=== PATIENT | female | born 1950 | race Asian ===

== ENCOUNTER 2016-12-03 11:32 | Inpatient (IN) | payer MEDICARE ==
[~2016-12-03] VITALS: Ht 165.1 cm; Wt 76.8 kg
[~2016-12-03 11:32] MED LIST: ALPR-475 PO; AMLO10TA2 PO; EZET10TA3 PO; FENO48TA5 PO; LEVO175T5 PO; MELO-184 PO; METO-93 PO; ZOLP10TA5 PO
[2016-12-03] MEDS ORDERED: FAMOTIDINE 20 MG/2 ML IVP ONE (12:00)
[2016-12-03] MEDS ORDERED: SODIUM CHLORIDE FLUSH 10ML SYR IVF ONE (12:00)
[2016-12-03] MEDS ORDERED: SODIUM CHLORIDE 0.9% 1,000ML IVBOLUS ONE (12:00)
[2016-12-03] MEDS ORDERED: ONDANSETRON 2MG/ML, 2ML IVPush ONE (12:00)
[2016-12-03] MEDS ORDERED: FAMOTIDINE 20 MG/2 ML ONE (12:06)
[2016-12-03] MEDS ORDERED: ONDANSETRON 2MG/ML, 2ML ONE ×2 (12:06→17:39)
[2016-12-03 12:21] LABS: HEMOGLOBIN 10.2 g/dL (11.7-16.4)
[2016-12-03 12:33] LABS: ASPARTATE AMINO TRANSFERASE 27 U/L (15-37); BLOOD UREA NITROGEN 13 mg/dL (7-18)
[2016-12-03] MEDS ORDERED: CEFOTETAN PMX 1GM/50ML 50 ML IVPB ONE (15:30)
[2016-12-03] MEDS ORDERED: SODIUM CHLORIDE 0.9% 1,000 ML IV ONE (15:31)
[2016-12-03] MEDS ORDERED: CEFOTETAN PMX 1GM/50ML 50 ML ONE (15:43)
[2016-12-03] MEDS ORDERED: SODIUM CHLORIDE FLUSH 10ML SYR IVF PRN (16:00)
[2016-12-03] MEDS ORDERED: BUPIVACAINE/PF-EPI 0.25% 1:200K ONE (16:02)
[2016-12-03] MEDS: SODIUM CHLORIDE 0.9% 1,000 ML IV SCH (16:18)
[2016-12-03] MEDS ORDERED: ACETAMINOPHEN 325 MG TABLET PO PRN ×2 (16:30→17:00)
[2016-12-03] MEDS ORDERED: ONDANSETRON 2MG/ML, 2ML IVP PRN (16:30)
[2016-12-03] MEDS ORDERED: FENTANYL PF 100 MCG/2ML ONE ×2 (16:40→18:40)
[2016-12-03] MEDS ORDERED: PROMETHAZINE 25 MG/ML, 1ML IV PRN (17:00)
[2016-12-03] MEDS ORDERED: OXYcodone 5 MG/5 ML ORAL.SOL UDC PO PRN (17:00)
[2016-12-03] MEDS ORDERED: ALBUTEROL/IPRATROPIUM 2.5MG/0.5MG, 3 ML NPPB PRN (17:00)
[2016-12-03] MEDS ORDERED: FENTANYL PF 100 MCG/2ML IV PRN (17:00)
[2016-12-03] MEDS ORDERED: hydrALAzine 20 MG/ML, 1ML IV PRN (17:00)
[2016-12-03] MEDS ORDERED: ONDANSETRON 2MG/ML, 2ML IVPush PRN (17:00)
[2016-12-03] MEDS ORDERED: FENTANYL PF 100 MCG/2ML IV ONE (17:00)
[2016-12-03] MEDS ORDERED: MEPERIDINE/PF 25MG/0.5ML IVPush PRN (17:00)
[2016-12-03] MEDS ORDERED: MIDAZOLAM 1 MG/ML, 2ML IV PRN (17:00)
[2016-12-03] MEDS ORDERED: POTASSIUM CHLORIDE 40 MEQ in SODIUM CHLORIDE 0.9% 500 ML IV ONE (17:00)
[2016-12-03] MEDS ORDERED: LABETALOL 5MG/ML, 20ML IV PRN (17:00)
[2016-12-03] MEDS ORDERED: HYDROmorphone 1 MG/ML, 1ML IV PRN (17:00)
[2016-12-03] MEDS ORDERED: FENTANYL PF 250 MCG/5ML ONE (17:28)
[2016-12-03] MEDS ORDERED: MIDAZOLAM 1 MG/ML, 2ML ONE (17:29)
[2016-12-03] MEDS ORDERED: NEOSTIGMINE 1 MG/ML, 10ML ONE (17:39)
[2016-12-03] MEDS ORDERED: SUCCINYLCHOLINE 20 MG/ML, 10ML ONE (17:39)
[2016-12-03] MEDS ORDERED: GLYCOPYRROLATE 0.2MG/1ML ONE (17:39)
[2016-12-03] MEDS ORDERED: ROCURONIUM 10 MG/ML ONE (17:39)
[2016-12-03] MEDS ORDERED: DEXAMETHASONE 4 MG/ML, 5ML ONE (17:39)
[2016-12-03] MEDS ORDERED: PROPOFOL 10 MG/ML, 20ML ONE (17:39)
[2016-12-03] MEDS ORDERED: OXYcodone 5 MG/5 ML ORAL.SOL UDC ONE (18:41)
[2016-12-03 18:45] LABS: DAU SCREEN DISCLAIMER
[2016-12-03] MEDS ORDERED: morphine SULFATE 10 MG/ML, 1ML IV PRN (20:30)
[2016-12-03] MEDS ORDERED: OXYcodone/APAP 5/325MG TABLET PO PRN (20:30)
[2016-12-03] MEDS ORDERED: LORazepam 1MG TABLET PO PRN (20:30)
[2016-12-03] MEDS: SODIUM CHLORIDE FLUSH 10ML SYR IVF SCH (22:03)
[2016-12-03] MEDS: POTASSIUM CHLORIDE 20 MEQ in D5%-0.45% NACL 1,000 ML IV SCH (22:04)
[2016-12-03] MEDS: ONDANSETRON 2MG/ML, 2ML IV PRN (22:06)
[2016-12-03] MEDS: ZOLPIDEM 10MG TABLET PO SCH (22:35)
[2016-12-03] MEDS: ENOXAPARIN 40 MG/0.4 ML SQ SCH (22:38)
[2016-12-04] VITALS: BP 120/80
[2016-12-04] MEDS: SODIUM CHLORIDE 0.9% 1,000 ML IV SCH ×2 (02:13→13:20)
[2016-12-04 02:47] VITALS: BP 114/76
[2016-12-04] MEDS: CEFOTETAN PMX 1GM/50ML 50 ML IVPB SCH ×2 (04:10→16:14)
[2016-12-04 06:00] LABS: HEMOGLOBIN 8.4 g/dL (11.7-16.4)
[2016-12-04 06:22] LABS: BLOOD UREA NITROGEN 12 mg/dL (7-18)
[2016-12-04 06:32] LABS: ASPARTATE AMINO TRANSFERASE 60 U/L (15-37); TOTAL IRON BINDING CAPACITY 301 mcg/dL (250-450)
[2016-12-04] MEDS: POTASSIUM CHLORIDE 20 MEQ in D5%-0.45% NACL 1,000 ML IV SCH ×2 (06:36→11:53)
[2016-12-04 06:52] LABS: DIFF TOTAL CELLS COUNTED 100 CELL DIFF
[2016-12-04 06:55] LABS: VERIFY COUNTS? YES
[2016-12-04 06:56] LABS: ANISOCYTOSIS 1+; POLYCHROMASIA 1+
[2016-12-04 06:57] LABS: MICROCYTOSIS 1+
[2016-12-04 07:10] VITALS: BP 145/81
[2016-12-04] MEDS: ONDANSETRON 2MG/ML, 2ML IV PRN ×2 (08:17→13:18)
[2016-12-04] MEDS: PANTOPRAZOLE 40 MG IV IVP SCH (08:17)
[2016-12-04] MEDS: AMLODIPINE 5 MG TABLET PO SCH (08:51)
[2016-12-04] MEDS: FENOFIBRATE NANOCRYSTALLIZED 48 MG HOMEMEDPO SCH (08:51)
[2016-12-04] MEDS: LEVOTHYROXINE 175 MCG TABLET PO SCH (08:51)
[2016-12-04] MEDS: SODIUM CHLORIDE FLUSH 10ML SYR IVF SCH ×2 (08:51→20:45)
[2016-12-04] MEDS: EZETIMIBE 10 MG TABLET PO SCH (08:51)
[2016-12-04] MEDS: METOPROLOL SUCCINATE 50 MG TAB.ER.24H PO SCH (08:51)
[2016-12-04] MEDS: LORazepam 2 MG/ML, 1ML IV PRN ×2 (09:23→20:52)
[2016-12-04] MEDS: MORPHINE SULFATE 4 MG/ML, 1ML IVPush PRN ×3 (11:57→20:52)
[2016-12-04 13:21] VITALS: BP 131/79
[2016-12-04] MEDS ORDERED: POTASSIUM CHLORIDE 40 MEQ in SODIUM CHLORIDE 0.9% 500 ML IV ONE (15:30)
[2016-12-04 19:04] VITALS: BP 127/73
[2016-12-04] MEDS: ZOLPIDEM 10MG TABLET PO SCH (20:44)
[2016-12-04] MEDS: ENOXAPARIN 40 MG/0.4 ML SQ SCH (20:45)
[2016-12-05] VITALS (10 sets, daily range): BP systolic 120–157; BP diastolic 70–87
[2016-12-05] MEDS: SODIUM CHLORIDE 0.9% 1,000 ML IV SCH ×3 (00:18→20:00)
[2016-12-05] MEDS: HYDROcodone/APAP 5/325 TABLET PO PRN ×6 (00:55→20:38)
[2016-12-05] MEDS: TEMAZEPAM 15 MG CAPSULE PO PRN ×2 (00:59→20:38)
[2016-12-05 06:52] LABS: ASPARTATE AMINO TRANSFERASE 30 U/L (15-37); BLOOD UREA NITROGEN 7 mg/dL (7-18)
[2016-12-05] MEDS: ONDANSETRON 2MG/ML, 2ML IV PRN ×2 (07:28→12:32)
[2016-12-05] MEDS: FENOFIBRATE NANOCRYSTALLIZED 48 MG HOMEMEDPO SCH (09:00)
[2016-12-05] MEDS: SODIUM CHLORIDE FLUSH 10ML SYR IVF SCH ×2 (09:24→21:00)
[2016-12-05] MEDS: AMLODIPINE 5 MG TABLET PO SCH (09:24)
[2016-12-05] MEDS: METOPROLOL SUCCINATE 50 MG TAB.ER.24H PO SCH (09:24)
[2016-12-05] MEDS: PANTOPRAZOLE 40 MG IV IVP SCH (09:24)
[2016-12-05] MEDS: LEVOTHYROXINE 175 MCG TABLET PO SCH (09:24)
[2016-12-05] MEDS: EZETIMIBE 10 MG TABLET PO SCH (09:24)
[2016-12-05] MEDS ORDERED: POTASSIUM CHLORIDE 20 MEQ TAB.ER.PRT PO ONE (10:30)
[2016-12-05] MEDS ORDERED: POTASSIUM PHOSPHATE 44 MEQ in SODIUM CHLORIDE 0.9% 500 ML IV ONE (11:00)
[2016-12-05] MEDS: ENOXAPARIN 40 MG/0.4 ML SQ SCH (20:43)
[2016-12-05] MEDS: ZOLPIDEM 10MG TABLET PO SCH (21:00)
[2016-12-06] MEDS: HYDROcodone/APAP 5/325 TABLET PO PRN ×5 (00:36→19:12)
[2016-12-06 00:41] VITALS: BP 147/83
[2016-12-06] MEDS ORDERED: MAGNESIUM SULFATE PMX 2GM/50ML 50 ML IV ONE (02:30)
[2016-12-06] MEDS: SODIUM CHLORIDE 0.9% 1,000 ML IV SCH ×3 (04:00→20:00)
[2016-12-06 05:42] LABS: BLOOD UREA NITROGEN 5 mg/dL (7-18)
[2016-12-06 07:34] VITALS: BP 116/75
[2016-12-06] MEDS: PANTOPRAZOLE 40 MG IV IVP SCH (08:04)
[2016-12-06] MEDS: SODIUM CHLORIDE FLUSH 10ML SYR IVF SCH ×2 (08:04→20:50)
[2016-12-06] MEDS: METOPROLOL SUCCINATE 50 MG TAB.ER.24H PO SCH (08:07)
[2016-12-06] MEDS: LEVOTHYROXINE 175 MCG TABLET PO SCH (08:08)
[2016-12-06] MEDS: FENOFIBRATE NANOCRYSTALLIZED 48 MG HOMEMEDPO SCH (08:08)
[2016-12-06] MEDS: AMLODIPINE 5 MG TABLET PO SCH (08:08)
[2016-12-06] MEDS: EZETIMIBE 10 MG TABLET PO SCH (08:08)
[2016-12-06 08:10] VITALS: BP 133/73
[2016-12-06] MEDS ORDERED: ONDA4TAB7 PO (10:19)
[2016-12-06] MEDS ORDERED: TRAM50TA2 PO (10:19)
[2016-12-06] MEDS ORDERED: LEVO100T PO (10:20)
[2016-12-06 10:44] LABS: HEMOGLOBIN 9.6 g/dL (11.7-16.4)
[2016-12-06] MEDS: ONDANSETRON 2MG/ML, 2ML IV PRN (12:32)
[2016-12-06 15:19] VITALS: BP 133/82
[2016-12-06 20:13] VITALS: BP 147/77
[2016-12-06] MEDS: ENOXAPARIN 40 MG/0.4 ML SQ SCH (20:49)
[2016-12-06] MEDS: ZOLPIDEM 10MG TABLET PO SCH (23:17)
[2016-12-07 00:34] VITALS: BP 134/72
[2016-12-07] MEDS: SODIUM CHLORIDE 0.9% 1,000 ML IV SCH ×2 (04:00→11:25)
[2016-12-07] MEDS: HYDROcodone/APAP 5/325 TABLET PO PRN ×3 (07:31→15:20)
[2016-12-07 07:56] VITALS: BP 163/82
[2016-12-07] MEDS: PANTOPRAZOLE 40 MG IV IVP SCH (08:43)
[2016-12-07] MEDS: AMLODIPINE 5 MG TABLET PO SCH (08:44)
[2016-12-07] MEDS: EZETIMIBE 10 MG TABLET PO SCH (08:45)
[2016-12-07] MEDS: LEVOTHYROXINE 175 MCG TABLET PO SCH (08:45)
[2016-12-07] MEDS: METOPROLOL SUCCINATE 50 MG TAB.ER.24H PO SCH (08:45)
[2016-12-07] MEDS: SODIUM CHLORIDE FLUSH 10ML SYR IVF SCH (08:47)
[2016-12-07] MEDS: FENOFIBRATE NANOCRYSTALLIZED 48 MG HOMEMEDPO SCH (08:47)
[2016-12-07 13:18] VITALS: BP 134/68
[2016-12-07] MEDS ORDERED: HYDR-3240 PO (14:17)
[2016-12-07] MEDS ORDERED: POLY17PO5 PO (14:17)
[2016-12-07 16:24] VITALS: BP 150/75
== END 2016-12-07 16:39 | DRG 417 ==
LOC: OR 15:41 → EDIP 15:46 → SUATTDRO 15:46 → 4NOR 19:25
PROVIDERS: ADMIT Internal Medicine; ATTEND Internal Medicine
PROC: 0FT44ZZ Resection of Gallbladder, Percutaneous Endoscopic Approach (ICD-10-PCS; principal; 2016-12-03 16:30)
PROC: 30233N1 Transfusion of Nonautologous Red Blood Cells into Peripheral Vein, Percutaneous Approach (ICD-10-PCS; 2016-12-05)
DX: K80.00 Calculus of gallbladder with acute cholecystitis without obstruction (principal); E43 Unspecified severe protein-calorie malnutrition; E87.1 Hypo-osmolality and hyponatremia; D62 Acute posthemorrhagic anemia; E87.6 Hypokalemia; N18.3 Chronic kidney disease, stage 3 (moderate); I12.9 Hypertensive chronic kidney disease with stage 1 through stage 4 chronic kidney disease, or unspecified chronic kidney disease; K44.9 Diaphragmatic hernia without obstruction or gangrene; K76.0 Fatty (change of) liver, not elsewhere classified; M51.36 Other intervertebral disc degeneration, lumbar region; D47.3 Essential (hemorrhagic) thrombocythemia; E03.9 Hypothyroidism, unspecified; E78.5 Hyperlipidemia, unspecified; Z96.651 Presence of right artificial knee joint; E66.9 Obesity, unspecified; F43.10 Post-traumatic stress disorder, unspecified; M54.5 Low back pain; G89.29 Other chronic pain; M19.90 Unspecified osteoarthritis, unspecified site; J44.9 Chronic obstructive pulmonary disease, unspecified; E83.39 Other disorders of phosphorus metabolism; Z87.891 Personal history of nicotine dependence; Z80.1 Family history of malignant neoplasm of trachea, bronchus and lung; Z90.710 Acquired absence of both cervix and uterus; Z68.28 Body mass index [BMI] 28.0-28.9, adult
CPT/HCPCS: 36415; 74020; 74176; 76700; 80048; 80053; 80307; 82962; 83540; 83550; 83690; 83735; 84100; 84443; 85014; 85018; 85025; 86850; 86900; 86923; 87324; 88304; 93005; 96361; 96374; 96375; C1729; J1100; J1650; J2250; J2405; J2704; J2710; J3010; J3480; J3490; C1760; C9113; J0330; J2060; J2270; J3475; J7030; J7040; P9016; S0028; S0074

== ENCOUNTER 2016-12-24 08:10 | Inpatient (IN) | payer MEDICARE ==
[~2016-12-24] VITALS: Ht 165.1 cm; Wt 69.5 kg
[~2016-12-24 08:10] MED LIST changes: +HYDR-3240 PO; +LEVO100T PO; +ONDA4TAB7 PO; +POLY17PO5 PO; +TRAM50TA2 PO
[2016-12-24] MEDS ORDERED: METOCLOPRAMIDE 5 MG/ML, 2ML ONE (08:26)
[2016-12-24] MEDS ORDERED: SODIUM CHLORIDE 0.9% 1,000ML IVBOLUS ONE ×2 (08:30→09:30)
[2016-12-24] MEDS ORDERED: FAMOTIDINE 20 MG/2 ML IVP ONE (08:30)
[2016-12-24] MEDS ORDERED: MORPHINE SULFATE 4 MG/ML, 1ML IVPush PRN (08:30)
[2016-12-24] MEDS ORDERED: SODIUM CHLORIDE FLUSH 10ML SYR IVF ONE (08:30)
[2016-12-24] MEDS ORDERED: METOCLOPRAMIDE 5 MG/ML, 2ML IVPush ONE (08:30)
[2016-12-24] MEDS ORDERED: MORPHINE SULFATE 4 MG/ML, 1ML ONE (08:37)
[2016-12-24] MEDS ORDERED: FAMOTIDINE 20 MG/2 ML ONE (08:38)
[2016-12-24 09:03] LABS: BLOOD UREA NITROGEN 27 mg/dL (7-18)
[2016-12-24 09:09] LABS: ASPARTATE AMINO TRANSFERASE 59 U/L (15-37)
[2016-12-24 09:18] LABS: DIFF TOTAL CELLS COUNTED 100 CELL DIFF
[2016-12-24 09:19] LABS: ANISOCYTOSIS 1+; VERIFY COUNTS? YES
[2016-12-24] MEDS ORDERED: POTASSIUM CHLORIDE 40 MEQ in SODIUM CHLORIDE 0.9% 500 ML IV ONE (09:30)
[2016-12-24] MEDS ORDERED: LORazepam 2 MG/ML, 1ML ONE (10:27)
[2016-12-24] MEDS ORDERED: LORazepam 2 MG/ML, 1ML IVPush ONE (10:30)
[2016-12-24] MEDS ORDERED: NS + 20MEQ KCL 1,000 ML IV SCH (10:32)
[2016-12-24] MEDS ORDERED: SODIUM CHLORIDE 0.9% 1,000 ML IV SCH (11:00)
[2016-12-24] MEDS ORDERED: ENALAPRILAT 1.25 MG/ML, 2ML IVPush PRN (11:30)
[2016-12-24] MEDS ORDERED: FAMOTIDINE 20 MG/2 ML IV SCH (11:30)
[2016-12-24] MEDS ORDERED: TEMAZEPAM 15 MG CAPSULE PO PRN (11:30)
[2016-12-24] MEDS ORDERED: POLYETHYLENE GLYCOL 17 GM PACKET PO PRN (11:30)
[2016-12-24] MEDS ORDERED: BISACODYL 10 MG SUPP PR PRN (11:30)
[2016-12-24 12:00] VITALS: BP 149/71
[2016-12-24] MEDS ORDERED: CEFOTETAN PMX 1GM/50ML 50 ML IV SCH (12:00)
[2016-12-24] MEDS: EZETIMIBE 10 MG TABLET PO SCH (12:30)
[2016-12-24] MEDS: FENOFIBRATE 54 MG TABLET PO SCH (12:30)
[2016-12-24] MEDS: AMLODIPINE 5 MG TABLET PO SCH (12:30)
[2016-12-24 12:41] VITALS: BP 138/76
[2016-12-24] MEDS: MORPHINE SULFATE 4 MG/ML, 1ML IVPush PRN ×4 (13:00→20:46)
[2016-12-24] MEDS: SODIUM CHLORIDE 0.9% 1,000 ML IV SCH ×2 (13:02→20:45)
[2016-12-24] MEDS: HEPARIN 5,000 UNITS/ML, 1ML SQ SCH ×2 (15:42→20:45)
[2016-12-24] MEDS: METOPROLOL SUCCINATE 50 MG TAB.ER.24H PO SCH (16:04)
[2016-12-24] MEDS: METRONIDAZOLE PMX 500MG/100ML 100 ML IV SCH ×2 (16:05→21:49)
[2016-12-24 20:27] VITALS: BP 123/69
[2016-12-24] MEDS: FAMOTIDINE 20 MG/2 ML IV SCH (20:45)
[2016-12-24] MEDS: ZOLPIDEM 10MG TABLET PO SCH (21:49)
[2016-12-25] MEDS: MORPHINE SULFATE 4 MG/ML, 1ML IVPush PRN ×3 (00:42→12:26)
[2016-12-25 01:41] VITALS: BP 119/73
[2016-12-25] MEDS: ONDANSETRON 2MG/ML, 2ML IVP PRN ×3 (01:46→21:04)
[2016-12-25] MEDS: HEPARIN 5,000 UNITS/ML, 1ML SQ SCH ×3 (04:00→21:11)
[2016-12-25] MEDS: SODIUM CHLORIDE 0.9% 1,000 ML IV SCH ×2 (04:00→15:42)
[2016-12-25 04:55] LABS: BLOOD UREA NITROGEN 15 mg/dL (7-18)
[2016-12-25 05:01] LABS: ASPARTATE AMINO TRANSFERASE 42 U/L (15-37)
[2016-12-25] MEDS: METRONIDAZOLE PMX 500MG/100ML 100 ML IV SCH ×3 (05:31→21:07)
[2016-12-25] MEDS: LEVOTHYROXINE 100 MCG TABLET PO SCH (05:31)
[2016-12-25] MEDS: OXYcodone IR 5MG TABLET PO PRN ×2 (05:31→21:08)
[2016-12-25 07:37] VITALS: BP 123/65
[2016-12-25] MEDS: FAMOTIDINE 20 MG/2 ML IV SCH ×2 (07:55→21:05)
[2016-12-25] MEDS: EZETIMIBE 10 MG TABLET PO SCH (09:00)
[2016-12-25] MEDS: SENNA/DOCUSATE TABLET PO SCH (09:00)
[2016-12-25] MEDS: FENOFIBRATE 54 MG TABLET PO SCH (09:00)
[2016-12-25] MEDS: GUAIFENESIN/DM 100-10MG, 5ML UDC PO PRN ×2 (09:53→19:35)
[2016-12-25] MEDS ORDERED: POTASSIUM CHLORIDE 40 MEQ in SODIUM CHLORIDE 0.9% 500 ML IV ONE (10:00)
[2016-12-25] MEDS: AMLODIPINE 5 MG TABLET PO SCH (11:35)
[2016-12-25] MEDS: METOPROLOL SUCCINATE 50 MG TAB.ER.24H PO SCH (11:37)
[2016-12-25] MEDS ORDERED: CEFOTETAN PMX 1GM/50ML 50 ML IV SCH (13:00)
[2016-12-25] MEDS ORDERED: METHOCARBAMOL 500 MG TABLET PO PRN (13:00)
[2016-12-25 13:10] VITALS: BP 114/63
[2016-12-25] MEDS: GABAPENTIN 100 MG CAPSULE PO SCH ×3 (13:33→21:07)
[2016-12-25 18:38] VITALS: BP 133/75
[2016-12-25] MEDS: ZOLPIDEM 10MG TABLET PO SCH (21:07)
[2016-12-26 01:36] VITALS: BP 132/71
[2016-12-26 02:06] LABS: BLOOD UREA NITROGEN 7 mg/dL (7-18)
[2016-12-26] MEDS: OXYcodone IR 5MG TABLET PO PRN ×3 (03:13→13:35)
[2016-12-26] MEDS: GABAPENTIN 100 MG CAPSULE PO SCH ×4 (05:55→21:09)
[2016-12-26] MEDS: LEVOTHYROXINE 100 MCG TABLET PO SCH (05:55)
[2016-12-26] MEDS: HEPARIN 5,000 UNITS/ML, 1ML SQ SCH ×3 (05:56→20:56)
[2016-12-26] MEDS: METRONIDAZOLE PMX 500MG/100ML 100 ML IV SCH ×3 (05:56→20:56)
[2016-12-26 07:34] VITALS: BP 113/63
[2016-12-26] MEDS: SENNA/DOCUSATE TABLET PO SCH (08:40)
[2016-12-26] MEDS: FENOFIBRATE 54 MG TABLET PO SCH (09:22)
[2016-12-26] MEDS: METOPROLOL SUCCINATE 50 MG TAB.ER.24H PO SCH (09:22)
[2016-12-26] MEDS: EZETIMIBE 10 MG TABLET PO SCH (09:22)
[2016-12-26] MEDS: AMLODIPINE 5 MG TABLET PO SCH (09:22)
[2016-12-26] MEDS: FAMOTIDINE 20 MG/2 ML IV SCH (09:23)
[2016-12-26] MEDS ORDERED: CALCIUM GLUCONATE 9.2 MEQ in SODIUM CHLORIDE 0.9% 100 ML IV ONE (12:00)
[2016-12-26] MEDS ORDERED: POTASSIUM CHLORIDE 40 MEQ in SODIUM CHLORIDE 0.9% 500 ML IV ONE (12:00)
[2016-12-26] MEDS ORDERED: ERGOCALCIFEROL 50,000 UNIT CAPSULE PO SCH (12:00)
[2016-12-26] MEDS: CEFOTETAN PMX 1GM/50ML 50 ML IV SCH (13:21)
[2016-12-26 14:10] VITALS: BP 118/66
[2016-12-26] MEDS ORDERED: GADOBUTROL 7.5 MMOL/7.5 ML PFS ONE (14:54)
[2016-12-26 20:13] VITALS: BP 115/65
[2016-12-26] MEDS: FAMOTIDINE 20 MG TABLET PO SCH (20:54)
[2016-12-26] MEDS: ZOLPIDEM 10MG TABLET PO SCH (20:54)
[2016-12-27] MEDS: CEFOTETAN PMX 1GM/50ML 50 ML IV SCH ×2 (01:04→12:50)
[2016-12-27 02:24] VITALS: BP 134/78
[2016-12-27] MEDS: OXYcodone IR 5MG TABLET PO PRN ×4 (02:50→20:01)
[2016-12-27] MEDS: GUAIFENESIN/DM 100-10MG, 5ML UDC PO PRN ×2 (04:49→22:20)
[2016-12-27] MEDS: METRONIDAZOLE PMX 500MG/100ML 100 ML IV SCH ×3 (04:50→21:39)
[2016-12-27] MEDS: GABAPENTIN 100 MG CAPSULE PO SCH ×4 (04:50→21:42)
[2016-12-27] MEDS: HEPARIN 5,000 UNITS/ML, 1ML SQ SCH ×3 (04:51→21:37)
[2016-12-27] MEDS: LEVOTHYROXINE 100 MCG TABLET PO SCH (04:51)
[2016-12-27] MEDS: ONDANSETRON 2MG/ML, 2ML IVP PRN (05:05)
[2016-12-27 07:16] VITALS: BP 127/74
[2016-12-27] MEDS: SENNA/DOCUSATE TABLET PO SCH (09:00)
[2016-12-27] MEDS: FENOFIBRATE 54 MG TABLET PO SCH (09:02)
[2016-12-27] MEDS: FAMOTIDINE 20 MG TABLET PO SCH ×2 (09:02→21:41)
[2016-12-27] MEDS: EZETIMIBE 10 MG TABLET PO SCH (09:02)
[2016-12-27] MEDS: METOPROLOL SUCCINATE 50 MG TAB.ER.24H PO SCH (09:02)
[2016-12-27] MEDS: AMLODIPINE 5 MG TABLET PO SCH (09:02)
[2016-12-27 13:27] VITALS: BP 147/75
[2016-12-27] MEDS: METHOCARBAMOL 500 MG TABLET PO SCH ×2 (16:55→21:41)
[2016-12-27] MEDS: LACTOBACILLUS CHEW TABLET PO SCH ×2 (16:56→21:36)
[2016-12-27 19:24] VITALS: BP 119/69
[2016-12-27] MEDS: ZOLPIDEM 10MG TABLET PO SCH (21:41)
[2016-12-28] MEDS: CEFOTETAN PMX 1GM/50ML 50 ML IV SCH ×2 (00:39→12:38)
[2016-12-28 01:13] VITALS: BP 135/79
[2016-12-28] MEDS: OXYcodone IR 5MG TABLET PO PRN ×5 (01:49→21:47)
[2016-12-28] MEDS: HEPARIN 5,000 UNITS/ML, 1ML SQ SCH ×3 (05:53→21:18)
[2016-12-28] MEDS: LEVOTHYROXINE 100 MCG TABLET PO SCH (05:53)
[2016-12-28] MEDS: METRONIDAZOLE PMX 500MG/100ML 100 ML IV SCH ×3 (05:53→21:18)
[2016-12-28] MEDS: GABAPENTIN 100 MG CAPSULE PO SCH ×4 (06:03→21:05)
[2016-12-28 07:53] VITALS: BP 122/70
[2016-12-28] MEDS: LACTOBACILLUS CHEW TABLET PO SCH ×3 (08:18→21:05)
[2016-12-28] MEDS: SENNA/DOCUSATE TABLET PO SCH (08:19)
[2016-12-28] MEDS: AMLODIPINE 5 MG TABLET PO SCH (08:19)
[2016-12-28] MEDS: METHOCARBAMOL 500 MG TABLET PO SCH ×3 (08:19→21:05)
[2016-12-28] MEDS: FENOFIBRATE 54 MG TABLET PO SCH (08:19)
[2016-12-28] MEDS: EZETIMIBE 10 MG TABLET PO SCH (08:19)
[2016-12-28] MEDS: FAMOTIDINE 20 MG TABLET PO SCH ×2 (08:19→21:05)
[2016-12-28] MEDS: METOPROLOL SUCCINATE 50 MG TAB.ER.24H PO SCH (08:20)
[2016-12-28] MEDS: GUAIFENESIN/DM 100-10MG, 5ML UDC PO PRN (09:38)
[2016-12-28 12:22] LABS: ABG COLLECTION SITE RIGHT RADIAL; COLLATERAL CIRCULATION TESTING NORMAL
[2016-12-28 13:03] VITALS: BP 118/73
[2016-12-28] MEDS ORDERED: OMNIPAQUE 350 MG/ML, 100ML BOTTLE ONE (14:24)
[2016-12-28] MEDS ORDERED: LIDOCAINE 2% VISCOUS, 100ML MM PRN (15:30)
[2016-12-28] MEDS ORDERED: CALCIUM CARBONATE 500 MG TAB.CHEW PO PRN (15:30)
[2016-12-28] MEDS: PIPERACILLIN/TAZO/PMX 3.375GM 50 ML IV SCH ×2 (15:46→19:45)
[2016-12-28 19:41] VITALS: BP 104/66
[2016-12-28] MEDS: MORPHINE SULFATE 4 MG/ML, 1ML IVPush PRN (19:45)
[2016-12-28] MEDS: ZOLPIDEM 10MG TABLET PO SCH (21:47)
[2016-12-29 01:29] VITALS: BP 104/66
[2016-12-29] MEDS: PIPERACILLIN/TAZO/PMX 3.375GM 50 ML IV SCH ×4 (02:43→20:35)
[2016-12-29] MEDS: OXYcodone IR 5MG TABLET PO PRN ×4 (02:44→21:23)
[2016-12-29 05:58] LABS: BLOOD UREA NITROGEN < 1 mg/dL (7-18)
[2016-12-29] MEDS: LEVOTHYROXINE 100 MCG TABLET PO SCH (05:58)
[2016-12-29] MEDS: HEPARIN 5,000 UNITS/ML, 1ML SQ SCH ×3 (05:58→20:36)
[2016-12-29] MEDS: METRONIDAZOLE PMX 500MG/100ML 100 ML IV SCH ×3 (05:58→21:23)
[2016-12-29] MEDS: GABAPENTIN 100 MG CAPSULE PO SCH ×4 (06:13→20:34)
[2016-12-29 06:54] VITALS: BP 110/66
[2016-12-29] MEDS: AMLODIPINE 5 MG TABLET PO SCH (08:08)
[2016-12-29] MEDS: FAMOTIDINE 20 MG TABLET PO SCH ×2 (08:08→20:34)
[2016-12-29] MEDS: EZETIMIBE 10 MG TABLET PO SCH (08:08)
[2016-12-29] MEDS: METHOCARBAMOL 500 MG TABLET PO SCH ×3 (08:08→20:34)
[2016-12-29] MEDS: FENOFIBRATE 54 MG TABLET PO SCH (08:08)
[2016-12-29] MEDS: SENNA/DOCUSATE TABLET PO SCH (08:08)
[2016-12-29] MEDS: METOPROLOL SUCCINATE 50 MG TAB.ER.24H PO SCH (08:08)
[2016-12-29] MEDS: LACTOBACILLUS CHEW TABLET PO SCH ×3 (08:08→20:34)
[2016-12-29] MEDS ORDERED: MAGNESIUM SULFATE 4 GM in SODIUM CHLORIDE 0.9% 100 ML IV ONE (11:30)
[2016-12-29] MEDS ORDERED: MAGNESIUM SULFATE PMX 4GM/100M 100 ML IVPB ONE (11:30)
[2016-12-29 12:44] VITALS: BP 118/70
[2016-12-29 19:11] VITALS: BP 115/65
[2016-12-29] MEDS: ZOLPIDEM 10MG TABLET PO SCH (20:35)
[2016-12-30 00:34] VITALS: BP 113/70
[2016-12-30] MEDS: PIPERACILLIN/TAZO/PMX 3.375GM 50 ML IV SCH ×4 (01:39→20:31)
[2016-12-30] MEDS: OXYcodone IR 5MG TABLET PO PRN ×5 (01:48→20:31)
[2016-12-30] MEDS: HEPARIN 5,000 UNITS/ML, 1ML SQ SCH ×3 (05:03→21:54)
[2016-12-30] MEDS: LEVOTHYROXINE 100 MCG TABLET PO SCH (05:03)
[2016-12-30] MEDS: METRONIDAZOLE PMX 500MG/100ML 100 ML IV SCH ×3 (05:04→21:54)
[2016-12-30] MEDS: GABAPENTIN 100 MG CAPSULE PO SCH ×4 (05:04→20:31)
[2016-12-30 05:11] LABS: BLOOD UREA NITROGEN < 1 mg/dL (7-18)
[2016-12-30 06:52] VITALS: BP 115/93
[2016-12-30] MEDS: SENNA/DOCUSATE TABLET PO SCH (08:30)
[2016-12-30] MEDS: METHOCARBAMOL 500 MG TABLET PO SCH ×3 (08:36→20:31)
[2016-12-30] MEDS: LACTOBACILLUS CHEW TABLET PO SCH ×3 (08:36→20:31)
[2016-12-30] MEDS: FAMOTIDINE 20 MG TABLET PO SCH ×2 (08:37→20:31)
[2016-12-30] MEDS: FENOFIBRATE 54 MG TABLET PO SCH (08:38)
[2016-12-30] MEDS: AMLODIPINE 5 MG TABLET PO SCH (08:38)
[2016-12-30] MEDS: METOPROLOL SUCCINATE 50 MG TAB.ER.24H PO SCH (08:41)
[2016-12-30] MEDS: EZETIMIBE 10 MG TABLET PO SCH (10:00)
[2016-12-30 12:35] VITALS: BP 128/71
[2016-12-30] MEDS: POTASSIUM CHLORIDE 20 MEQ TAB.ER.PRT PO SCH (17:00)
[2016-12-30 19:46] VITALS: BP 121/69
[2016-12-30] MEDS: ZOLPIDEM 10MG TABLET PO SCH (20:31)
[2016-12-31] MEDS: OXYcodone IR 5MG TABLET PO PRN ×6 (00:47→21:20)
[2016-12-31] MEDS: PIPERACILLIN/TAZO/PMX 3.375GM 50 ML IV SCH ×4 (02:10→20:30)
[2016-12-31 02:20] VITALS: BP 129/68
[2016-12-31 04:55] LABS: BLOOD UREA NITROGEN < 1 mg/dL (7-18)
[2016-12-31] MEDS ORDERED: POTASSIUM CHLORIDE 20 MEQ TAB.ER.PRT PO ONE (05:30)
[2016-12-31] MEDS: GABAPENTIN 100 MG CAPSULE PO SCH ×4 (05:56→20:30)
[2016-12-31] MEDS: LEVOTHYROXINE 100 MCG TABLET PO SCH (05:56)
[2016-12-31] MEDS: HEPARIN 5,000 UNITS/ML, 1ML SQ SCH ×3 (05:57→20:31)
[2016-12-31] MEDS: METRONIDAZOLE PMX 500MG/100ML 100 ML IV SCH ×3 (05:58→21:40)
[2016-12-31 07:00] VITALS: BP 123/66
[2016-12-31] MEDS: POTASSIUM CHLORIDE 20 MEQ TAB.ER.PRT PO SCH ×2 (08:00→08:23)
[2016-12-31] MEDS: AMLODIPINE 5 MG TABLET PO SCH (08:22)
[2016-12-31] MEDS: FENOFIBRATE 54 MG TABLET PO SCH (08:22)
[2016-12-31] MEDS: LACTOBACILLUS CHEW TABLET PO SCH ×3 (08:22→20:30)
[2016-12-31] MEDS: FAMOTIDINE 20 MG TABLET PO SCH ×2 (08:23→20:30)
[2016-12-31] MEDS: METHOCARBAMOL 500 MG TABLET PO SCH ×3 (08:23→20:30)
[2016-12-31] MEDS: METOPROLOL SUCCINATE 50 MG TAB.ER.24H PO SCH (08:23)
[2016-12-31] MEDS: EZETIMIBE 10 MG TABLET PO SCH (08:23)
[2016-12-31] MEDS: SENNA/DOCUSATE TABLET PO SCH (08:31)
[2016-12-31] MEDS ORDERED: POTASSIUM CHLORIDE 20 MEQ PACKET PO ONE (09:00)
[2016-12-31] MEDS: POTASSIUM CHLORIDE 20 MEQ PACKET PO SCH ×2 (09:00→17:02)
[2016-12-31 12:30] VITALS: BP 126/73
[2016-12-31] MEDS ORDERED: ALPRazolam 1MG TABLET ONE (14:02)
[2016-12-31] MEDS ORDERED: POTASSIUM CHLORIDE 40 MEQ in SODIUM CHLORIDE 0.9% 500 ML IV ONE (17:00)
[2016-12-31 20:04] VITALS: BP 149/89
[2016-12-31] MEDS: ZOLPIDEM 10MG TABLET PO SCH (21:20)
[2017-01-01 01:00] VITALS: BP 115/71
[2017-01-01] MEDS: PIPERACILLIN/TAZO/PMX 3.375GM 50 ML IV SCH ×3 (01:42→14:19)
[2017-01-01] MEDS: OXYcodone IR 5MG TABLET PO PRN ×3 (03:46→14:19)
[2017-01-01] MEDS: METRONIDAZOLE PMX 500MG/100ML 100 ML IV SCH ×2 (05:10→12:39)
[2017-01-01] MEDS: HEPARIN 5,000 UNITS/ML, 1ML SQ SCH ×2 (05:10→13:12)
[2017-01-01] MEDS: LEVOTHYROXINE 100 MCG TABLET PO SCH (05:10)
[2017-01-01] MEDS: GABAPENTIN 100 MG CAPSULE PO SCH ×2 (05:10→10:37)
[2017-01-01 06:14] LABS: BLOOD UREA NITROGEN 1 mg/dL (7-18)
[2017-01-01 07:00] VITALS: BP 130/69
[2017-01-01] MEDS: FENOFIBRATE 54 MG TABLET PO SCH (08:38)
[2017-01-01] MEDS: FAMOTIDINE 20 MG TABLET PO SCH (08:38)
[2017-01-01] MEDS: POTASSIUM CHLORIDE 20 MEQ PACKET PO SCH (08:38)
[2017-01-01] MEDS: AMLODIPINE 5 MG TABLET PO SCH (08:38)
[2017-01-01] MEDS: METHOCARBAMOL 500 MG TABLET PO SCH (08:38)
[2017-01-01] MEDS: EZETIMIBE 10 MG TABLET PO SCH (08:39)
[2017-01-01] MEDS: SENNA/DOCUSATE TABLET PO SCH (08:39)
[2017-01-01] MEDS: METOPROLOL SUCCINATE 50 MG TAB.ER.24H PO SCH (08:39)
[2017-01-01] MEDS: LACTOBACILLUS CHEW TABLET PO SCH (08:39)
[2017-01-01] MEDS ORDERED: GABA100C8 PO (11:53)
[2017-01-01] MEDS ORDERED: METR500P29 IV (11:53)
[2017-01-01] MEDS ORDERED: FAMO20TA7 PO (11:53)
[2017-01-01] MEDS ORDERED: ALPR-475 PO (11:53)
[2017-01-01] MEDS ORDERED: METH500T7 PO (11:53)
[2017-01-01] MEDS ORDERED: PIPE3.373 IV (11:53)
[2017-01-01] MEDS ORDERED: ACID1TAB7 PO (11:53)
[2017-01-01] MEDS ORDERED: POTA20PA8 PO (11:53)
[2017-01-01 13:00] VITALS: BP 126/77
== END 2017-01-01 15:20 | DRG 871 ==
LOC: ED 10:28 → EDIP 10:29 → ED 11:04 → 4EST 11:49
PROVIDERS: ADMIT Family Medicine; ATTEND Internal Medicine
PROC: 02HV33Z Insertion of Infusion Device into Superior Vena Cava, Percutaneous Approach (ICD-10-PCS; principal; 2016-12-24)
PROC: B548ZZA Ultrasonography of Superior Vena Cava, Guidance (ICD-10-PCS; 2016-12-24)
DX: A41.9 Sepsis, unspecified organism (principal); J69.0 Pneumonitis due to inhalation of food and vomit; J96.01 Acute respiratory failure with hypoxia; N17.0 Acute kidney failure with tubular necrosis; L02.211 Cutaneous abscess of abdominal wall; J98.11 Atelectasis; D47.3 Essential (hemorrhagic) thrombocythemia; D63.8 Anemia in other chronic diseases classified elsewhere; E03.9 Hypothyroidism, unspecified; E78.5 Hyperlipidemia, unspecified; E87.6 Hypokalemia; K21.9 Gastro-esophageal reflux disease without esophagitis; F17.210 Nicotine dependence, cigarettes, uncomplicated; F43.10 Post-traumatic stress disorder, unspecified; G89.29 Other chronic pain; Z96.653 Presence of artificial knee joint, bilateral; M54.9 Dorsalgia, unspecified; K76.0 Fatty (change of) liver, not elsewhere classified; M47.816 Spondylosis without myelopathy or radiculopathy, lumbar region; M50.30 Other cervical disc degeneration, unspecified cervical region; M51.36 Other intervertebral disc degeneration, lumbar region; N18.3 Chronic kidney disease, stage 3 (moderate); R13.10 Dysphagia, unspecified; Z80.1 Family history of malignant neoplasm of trachea, bronchus and lung; Z90.49 Acquired absence of other specified parts of digestive tract
CPT/HCPCS: 36415; 36569; 36600; 71010; 71275; 72156; 72157; 72158; 74176; 76700; 76937; 77001; 80048; 80053; 80061; 80307; 81001; 82010; 82040; 82306; 82607; 82800; 82803; 83036; 83605; 83690; 83735; 84145; 84439; 84443; 85025; 85730; 87040; 87086; 87324; 96361; 96365; 96366; 96375; A9585; J0610; J1644; J2405; J2543; J3480; Q9967; C1751; J2060; J2765; J3475; J7030; J7040; S0028; S0074

== ENCOUNTER 2017-01-21 14:59 | Inpatient (IN) | payer MEDICARE ==
[~2017-01-21] VITALS: Ht 165.1 cm; Wt 72.0 kg
[~2017-01-21 14:59] MED LIST changes: +ACID1TAB7 PO; +FAMO20TA7 PO; +GABA100C8 PO; +METH500T7 PO; +METR500P29 IV; +PIPE3.373 IV; +POTA20PA8 PO
[2017-01-21] MEDS ORDERED: SODIUM CHLORIDE 0.9% 1,000 ML IV ONE (15:26)
[2017-01-21] MEDS ORDERED: SODIUM CHLORIDE 0.9% 1,000ML IVBOLUS ONE ×2 (15:30→17:00)
[2017-01-21] MEDS ORDERED: SODIUM CHLORIDE FLUSH 10ML SYR IVF ONE (15:30)
[2017-01-21 16:08] LABS: ASPARTATE AMINO TRANSFERASE 104 U/L (15-37); BLOOD UREA NITROGEN 16 mg/dL (7-18)
[2017-01-21 16:32] LABS: IS PT STATUS REG ER OR PRE ER? YES
[2017-01-21] MEDS ORDERED: OMEP-110 PO (18:09)
[2017-01-21] MEDS ORDERED: FENO145T32 PO (18:09)
[2017-01-21] MEDS ORDERED: SODIUM CHLORIDE 0.9% 1,000 ML IV SCH (18:22)
[2017-01-21] MEDS ORDERED: POLYETHYLENE GLYCOL 17 GM PACKET PO PRN (18:30)
[2017-01-21] MEDS ORDERED: BISACODYL 10 MG SUPP PR PRN (18:30)
[2017-01-21] MEDS ORDERED: ACETAMINOPHEN 325 MG TABLET PO PRN (18:30)
[2017-01-21 18:50] VITALS: BP 118/60
[2017-01-21] MEDS ORDERED: ONDANSETRON 2MG/ML, 2ML ONE (18:55)
[2017-01-21] MEDS: ONDANSETRON 2MG/ML, 2ML IVPush PRN (18:58)
[2017-01-21] MEDS: GABAPENTIN 100 MG CAPSULE PO SCH (21:00)
[2017-01-21] MEDS: ZOLPIDEM 10MG TABLET PO SCH (22:18)
[2017-01-21] MEDS: HEPARIN 5,000 UNITS/ML, 1ML SQ SCH (22:18)
[2017-01-21] MEDS: FAMOTIDINE 20 MG TABLET PO SCH (22:18)
[2017-01-22 00:49] LABS: ABG COLLECTION SITE LEFT BRACHIAL
[2017-01-22 01:07] LABS: IS PT STATUS REG ER OR PRE ER? NO
[2017-01-22] MEDS: SODIUM BICARB 8.4% IV SCH ×2 (01:31→12:08)
[2017-01-22] MEDS: POTASSIUM CHLORIDE IV SCH ×2 (01:31→12:08)
[2017-01-22] MEDS: DEXTROSE 5% IV SCH ×2 (01:31→12:08)
[2017-01-22] MEDS ORDERED: OMNIPAQUE 350 MG/ML, 100ML BOTTLE ONE (01:59)
[2017-01-22 02:07] VITALS: BP 148/75
[2017-01-22 05:10] LABS: BLOOD UREA NITROGEN 21 mg/dL (7-18)
[2017-01-22] MEDS: LEVOTHYROXINE 100 MCG TABLET PO SCH ×2 (05:10→05:21)
[2017-01-22] MEDS: HEPARIN 5,000 UNITS/ML, 1ML SQ SCH ×3 (05:11→23:04)
[2017-01-22 05:14] LABS: ASPARTATE AMINO TRANSFERASE 127 U/L (15-37)
[2017-01-22] MEDS: GABAPENTIN 100 MG CAPSULE PO SCH ×4 (05:15→21:00)
[2017-01-22] MEDS: ONDANSETRON 2MG/ML, 2ML IVPush PRN ×2 (05:18→20:22)
[2017-01-22 06:43] VITALS: BP 156/81
[2017-01-22] MEDS: METOPROLOL SUCCINATE 50 MG TAB.ER.24H PO SCH (09:00)
[2017-01-22] MEDS: FOLIC ACID 1 MG TABLET PO SCH (09:00)
[2017-01-22] MEDS: FENOFIBRATE 145 MG TABLET PO SCH (09:00)
[2017-01-22] MEDS: AMLODIPINE 5 MG TABLET PO SCH (09:00)
[2017-01-22] MEDS: EZETIMIBE 10 MG TABLET PO SCH (09:00)
[2017-01-22] MEDS: SENNA/DOCUSATE TABLET PO SCH (09:00)
[2017-01-22] MEDS: THIAMINE 100MG TABLET PO SCH (09:00)
[2017-01-22] MEDS: FAMOTIDINE 20 MG TABLET PO SCH ×2 (09:00→21:00)
[2017-01-22] MEDS: MULTIVITAMIN 1 TABLET PO SCH (09:00)
[2017-01-22] MEDS ORDERED: ONDANSETRON 2MG/ML, 2ML IVPush ONE (09:30)
[2017-01-22] MEDS: OMEPRAZOLE 20 MG CAPSULE.DR PO SCH ×2 (11:00→17:00)
[2017-01-22] MEDS: MORPHINE SULFATE 4 MG/ML, 1ML IVPush PRN ×3 (12:07→20:22)
[2017-01-22 12:45] VITALS: BP 177/90
[2017-01-22 14:25] LABS: DAU SCREEN DISCLAIMER
[2017-01-22] MEDS: LORazepam 2 MG/ML, 1ML IVPush PRN (19:14)
[2017-01-22 19:25] VITALS: BP 160/84
[2017-01-22] MEDS ORDERED: PROMETHAZINE 25 MG/ML, 1ML IM PRN (22:30)
[2017-01-22] MEDS: ZOLPIDEM 10MG TABLET PO SCH (23:04)
[2017-01-23] MEDS: MORPHINE SULFATE 4 MG/ML, 1ML IVPush PRN ×7 (00:28→22:32)
[2017-01-23 01:15] VITALS: BP 169/93
[2017-01-23] MEDS: LORazepam 2 MG/ML, 1ML IVPush PRN ×3 (03:44→20:49)
[2017-01-23] MEDS: GABAPENTIN 100 MG CAPSULE PO SCH ×4 (05:07→20:46)
[2017-01-23] MEDS: LEVOTHYROXINE 100 MCG TABLET PO SCH (05:07)
[2017-01-23] MEDS: HEPARIN 5,000 UNITS/ML, 1ML SQ SCH ×2 (05:07→15:41)
[2017-01-23 07:32] LABS: ASPARTATE AMINO TRANSFERASE 42 U/L (15-37); BLOOD UREA NITROGEN 8 mg/dL (7-18)
[2017-01-23] MEDS: OMEPRAZOLE 20 MG CAPSULE.DR PO SCH (08:00)
[2017-01-23 08:01] VITALS: BP 159/79
[2017-01-23] MEDS ORDERED: POTASSIUM CHLORIDE 40 MEQ in SODIUM CHLORIDE 0.9% 500 ML IV ONE (08:30)
[2017-01-23] MEDS: SODIUM CHLORIDE 0.9% 1,000 ML IV SCH (08:30)
[2017-01-23] MEDS: AMLODIPINE 5 MG TABLET PO SCH (09:00)
[2017-01-23] MEDS: MULTIVITAMIN 1 TABLET PO SCH (09:00)
[2017-01-23] MEDS: FENOFIBRATE 145 MG TABLET PO SCH (09:00)
[2017-01-23] MEDS: FOLIC ACID 1 MG TABLET PO SCH (09:00)
[2017-01-23] MEDS: SENNA/DOCUSATE TABLET PO SCH (09:00)
[2017-01-23] MEDS: FAMOTIDINE 20 MG TABLET PO SCH ×2 (09:00→20:47)
[2017-01-23] MEDS: THIAMINE 100MG TABLET PO SCH (09:00)
[2017-01-23] MEDS: METOPROLOL SUCCINATE 50 MG TAB.ER.24H PO SCH (09:00)
[2017-01-23] MEDS: EZETIMIBE 10 MG TABLET PO SCH (09:00)
[2017-01-23] MEDS: ONDANSETRON 2MG/ML, 2ML IVPush PRN (09:24)
[2017-01-23] MEDS ORDERED: POTASSIUM PHOSPHATE 44 MEQ in SODIUM CHLORIDE 0.9% 500 ML IV ONE (12:00)
[2017-01-23] MEDS: PANTOPRAZOLE 40 MG IV IVPush SCH (12:54)
[2017-01-23 14:30] VITALS: BP 132/83
[2017-01-23] MEDS ORDERED: LEVO112T4 PO (17:51)
[2017-01-23] MEDS ORDERED: METO25TA35 PO (17:51)
[2017-01-23 20:21] VITALS: BP 149/98
[2017-01-23] MEDS: ZOLPIDEM 10MG TABLET PO SCH (20:46)
[2017-01-24] MEDS: PANTOPRAZOLE 40 MG IV IVPush SCH ×2 (00:13→11:55)
[2017-01-24] MEDS: HEPARIN 5,000 UNITS/ML, 1ML SQ SCH ×3 (00:13→17:27)
[2017-01-24 02:00] VITALS: BP 136/74
[2017-01-24] MEDS: MORPHINE SULFATE 4 MG/ML, 1ML IVPush PRN ×3 (02:28→17:27)
[2017-01-24] MEDS: LORazepam 2 MG/ML, 1ML IVPush PRN ×3 (05:00→21:51)
[2017-01-24] MEDS: LEVOTHYROXINE 100 MCG TABLET PO SCH (05:01)
[2017-01-24] MEDS: GABAPENTIN 100 MG CAPSULE PO SCH ×4 (05:01→21:00)
[2017-01-24 05:09] LABS: BLOOD UREA NITROGEN 5 mg/dL (7-18)
[2017-01-24 08:04] VITALS: BP 146/92
[2017-01-24] MEDS: METOPROLOL SUCCINATE 50 MG TAB.ER.24H PO SCH (09:00)
[2017-01-24] MEDS: FOLIC ACID 1 MG TABLET PO SCH (09:00)
[2017-01-24] MEDS: FENOFIBRATE 145 MG TABLET PO SCH (09:00)
[2017-01-24] MEDS: AMLODIPINE 5 MG TABLET PO SCH (09:00)
[2017-01-24] MEDS: MULTIVITAMIN 1 TABLET PO SCH (09:00)
[2017-01-24] MEDS: FAMOTIDINE 20 MG TABLET PO SCH (09:00)
[2017-01-24] MEDS: SENNA/DOCUSATE TABLET PO SCH (09:00)
[2017-01-24] MEDS: EZETIMIBE 10 MG TABLET PO SCH (09:00)
[2017-01-24] MEDS: THIAMINE 100MG TABLET PO SCH (09:00)
[2017-01-24] MEDS: SODIUM CHLORIDE 0.9% 1,000 ML IV SCH ×2 (09:46→17:28)
[2017-01-24 14:35] VITALS: BP 154/83
[2017-01-24 19:44] VITALS: BP 165/88
[2017-01-24] MEDS: ZOLPIDEM 10MG TABLET PO SCH (21:00)
[2017-01-25] VITALS (15 sets, daily range): BP systolic 147–179; BP diastolic 77–99
[2017-01-25] MEDS: PANTOPRAZOLE 40 MG IV IVPush SCH (00:51)
[2017-01-25] MEDS: SODIUM CHLORIDE 0.9% 1,000 ML IV SCH ×3 (00:51→22:30)
[2017-01-25] MEDS: MORPHINE SULFATE 4 MG/ML, 1ML IVPush PRN ×4 (00:52→18:32)
[2017-01-25] MEDS: GABAPENTIN 100 MG CAPSULE PO SCH ×4 (06:00→22:30)
[2017-01-25] MEDS: LEVOTHYROXINE 100 MCG TABLET PO SCH (06:00)
[2017-01-25] MEDS: HEPARIN 5,000 UNITS/ML, 1ML SQ SCH ×3 (08:00→16:40)
[2017-01-25] MEDS: EZETIMIBE 10 MG TABLET PO SCH (09:00)
[2017-01-25] MEDS: FENOFIBRATE 145 MG TABLET PO SCH (09:00)
[2017-01-25] MEDS: FOLIC ACID 1 MG TABLET PO SCH (09:00)
[2017-01-25] MEDS: THIAMINE 100MG TABLET PO SCH (09:00)
[2017-01-25] MEDS: METOPROLOL SUCCINATE 50 MG TAB.ER.24H PO SCH ×2 (09:00→14:42)
[2017-01-25] MEDS: AMLODIPINE 5 MG TABLET PO SCH ×2 (09:00→14:43)
[2017-01-25] MEDS: MULTIVITAMIN 1 TABLET PO SCH (09:00)
[2017-01-25] MEDS: SENNA/DOCUSATE TABLET PO SCH (09:00)
[2017-01-25] MEDS ORDERED: FENTANYL PF 100 MCG/2ML ONE (12:29)
[2017-01-25] MEDS ORDERED: MIDAZOLAM 1 MG/ML, 5ML ONE (12:30)
[2017-01-25] MEDS ORDERED: PROPOFOL 10 MG/ML, 20ML ONE (13:40)
[2017-01-25] MEDS ORDERED: OXYcodone 5 MG/5 ML ORAL.SOL UDC PO PRN (14:00)
[2017-01-25] MEDS ORDERED: HYDROmorphone 1 MG/ML, 1ML IV PRN (14:00)
[2017-01-25] MEDS ORDERED: MIDAZOLAM 1 MG/ML, 2ML IV PRN (14:00)
[2017-01-25] MEDS ORDERED: FENTANYL PF 100 MCG/2ML IV PRN (14:00)
[2017-01-25] MEDS ORDERED: ACETAMINOPHEN 325 MG TABLET PO PRN (14:00)
[2017-01-25] MEDS ORDERED: ONDANSETRON 2MG/ML, 2ML IVPush PRN (14:00)
[2017-01-25] MEDS: SUCRALFATE 1 GM/10 ML UDC PO SCH ×2 (16:40→22:30)
[2017-01-25] MEDS: OMEPRAZOLE 20 MG CAPSULE.DR PO SCH (16:40)
[2017-01-25] MEDS: ZOLPIDEM 10MG TABLET PO SCH (22:30)
[2017-01-25] MEDS: LORazepam 2 MG/ML, 1ML IVPush PRN (22:30)
[2017-01-26 02:00] VITALS: BP 157/79
[2017-01-26] MEDS: SODIUM CHLORIDE 0.9% 1,000 ML IV SCH ×3 (05:39→21:59)
[2017-01-26] MEDS: LEVOTHYROXINE 100 MCG TABLET PO SCH (05:39)
[2017-01-26] MEDS: GABAPENTIN 100 MG CAPSULE PO SCH ×4 (05:40→21:55)
[2017-01-26 06:35] VITALS: BP 176/95
[2017-01-26] MEDS: SUCRALFATE 1 GM/10 ML UDC PO SCH ×4 (07:00→21:55)
[2017-01-26] MEDS: MORPHINE SULFATE 4 MG/ML, 1ML IVPush PRN ×3 (07:12→18:28)
[2017-01-26] MEDS: AMLODIPINE 5 MG TABLET PO SCH (08:15)
[2017-01-26] MEDS: OMEPRAZOLE 20 MG CAPSULE.DR PO SCH ×2 (08:15→17:00)
[2017-01-26] MEDS: HEPARIN 5,000 UNITS/ML, 1ML SQ SCH ×3 (08:16→17:00)
[2017-01-26] MEDS: THIAMINE 100MG TABLET PO SCH (08:16)
[2017-01-26] MEDS: LORazepam 2 MG/ML, 1ML IVPush PRN ×2 (08:16→16:59)
[2017-01-26] MEDS: FOLIC ACID 1 MG TABLET PO SCH (08:16)
[2017-01-26] MEDS: MULTIVITAMIN 1 TABLET PO SCH (08:16)
[2017-01-26] MEDS: METOPROLOL SUCCINATE 50 MG TAB.ER.24H PO SCH (08:21)
[2017-01-26] MEDS: SENNA/DOCUSATE TABLET PO SCH (08:21)
[2017-01-26 14:34] VITALS: BP 137/73
[2017-01-26] MEDS: CITALOPRAM 20 MG TABLET PO SCH (16:59)
[2017-01-26 18:44] VITALS: BP 176/89
[2017-01-26] MEDS: FENOFIBRATE 145 MG TABLET PO SCH (21:00)
[2017-01-26] MEDS: EZETIMIBE 10 MG TABLET PO SCH (21:56)
[2017-01-26] MEDS: ZOLPIDEM 10MG TABLET PO SCH (21:56)
[2017-01-27] MEDS: MORPHINE SULFATE 4 MG/ML, 1ML IVPush PRN ×2 (00:08→07:45)
[2017-01-27] MEDS: HEPARIN 5,000 UNITS/ML, 1ML SQ SCH ×3 (00:08→17:01)
[2017-01-27 02:23] VITALS: BP 141/86
[2017-01-27] MEDS: LORazepam 2 MG/ML, 1ML IVPush PRN ×2 (03:04→11:39)
[2017-01-27] MEDS: SODIUM CHLORIDE 0.9% 1,000 ML IV SCH ×2 (06:01→13:00)
[2017-01-27] MEDS: LEVOTHYROXINE 100 MCG TABLET PO SCH (06:01)
[2017-01-27] MEDS: GABAPENTIN 100 MG CAPSULE PO SCH ×4 (06:01→20:25)
[2017-01-27 06:30] VITALS: BP 142/76
[2017-01-27] MEDS: THIAMINE 100MG TABLET PO SCH (07:45)
[2017-01-27] MEDS: SUCRALFATE 1 GM/10 ML UDC PO SCH ×4 (07:45→20:24)
[2017-01-27] MEDS: METOPROLOL SUCCINATE 50 MG TAB.ER.24H PO SCH (07:46)
[2017-01-27] MEDS: CITALOPRAM 20 MG TABLET PO SCH (07:46)
[2017-01-27] MEDS: MULTIVITAMIN 1 TABLET PO SCH (07:46)
[2017-01-27] MEDS: AMLODIPINE 5 MG TABLET PO SCH (07:46)
[2017-01-27] MEDS: FOLIC ACID 1 MG TABLET PO SCH (07:46)
[2017-01-27] MEDS: OMEPRAZOLE 20 MG CAPSULE.DR PO SCH ×2 (07:46→17:01)
[2017-01-27] MEDS: SENNA/DOCUSATE TABLET PO SCH (07:53)
[2017-01-27 13:25] VITALS: BP 160/88
[2017-01-27] MEDS: ZOLPIDEM 10MG TABLET PO SCH (20:24)
[2017-01-27] MEDS: EZETIMIBE 10 MG TABLET PO SCH (20:25)
[2017-01-27] MEDS: FENOFIBRATE 145 MG TABLET PO SCH (20:25)
[2017-01-27 20:39] VITALS: BP 152/85
[2017-01-28] MEDS: HEPARIN 5,000 UNITS/ML, 1ML SQ SCH ×2 (00:20→09:00)
[2017-01-28 02:46] VITALS: BP 130/82
[2017-01-28] MEDS: MORPHINE SULFATE 4 MG/ML, 1ML IVPush PRN ×2 (03:43→12:27)
[2017-01-28] MEDS: GABAPENTIN 100 MG CAPSULE PO SCH ×3 (06:20→16:11)
[2017-01-28] MEDS: LEVOTHYROXINE 100 MCG TABLET PO SCH (06:20)
[2017-01-28] MEDS: SUCRALFATE 1 GM/10 ML UDC PO SCH ×3 (06:39→16:11)
[2017-01-28 07:00] VITALS: BP 155/81
[2017-01-28] MEDS: METOPROLOL SUCCINATE 50 MG TAB.ER.24H PO SCH (08:58)
[2017-01-28] MEDS: OMEPRAZOLE 20 MG CAPSULE.DR PO SCH ×2 (08:58→16:11)
[2017-01-28] MEDS: SENNA/DOCUSATE TABLET PO SCH (08:59)
[2017-01-28] MEDS: CITALOPRAM 20 MG TABLET PO SCH (08:59)
[2017-01-28] MEDS: AMLODIPINE 5 MG TABLET PO SCH (08:59)
[2017-01-28] MEDS: THIAMINE 100MG TABLET PO SCH (09:00)
[2017-01-28] MEDS: FOLIC ACID 1 MG TABLET PO SCH (09:00)
[2017-01-28] MEDS: MULTIVITAMIN 1 TABLET PO SCH (09:00)
[2017-01-28] MEDS ORDERED: MULT1TAB60 PO (12:29)
[2017-01-28] MEDS ORDERED: TRAM50TA2 PO (12:29)
[2017-01-28] MEDS ORDERED: CITA20TA9 PO (12:29)
[2017-01-28] MEDS ORDERED: THIA100T6 PO (12:29)
[2017-01-28] MEDS ORDERED: OMEP-110 PO (12:29)
[2017-01-28] MEDS ORDERED: POLY17PO5 PO (12:29)
[2017-01-28] MEDS ORDERED: SUCR1ORA2 PO (12:29)
[2017-01-28] MEDS ORDERED: FOLI-17 PO (12:29)
[2017-01-28 12:56] VITALS: BP 174/97
[2017-01-28] MEDS ORDERED: PNEUMOCOCCAL 23 VACCINE IM-VACC ONE (14:00)
[2017-01-28 20:00] VITALS: BP 155/62
== END 2017-01-28 16:20 | DRG 895 ==
LOC: ED 18:00 → EDIP 18:01 → 4WST 19:54
PROVIDERS: ADMIT Internal Medicine; ATTEND Internal Medicine
PROC: HZ34ZZZ Individual Counseling for Substance Abuse Treatment, Interpersonal (ICD-10-PCS; 2017-01-21)
PROC: HZ2ZZZZ Detoxification Services for Substance Abuse Treatment (ICD-10-PCS; 2017-01-21)
PROC: 0DB48ZX Excision of Esophagogastric Junction, Via Natural or Artificial Opening Endoscopic, Diagnostic (ICD-10-PCS; principal; 2017-01-25 13:45)
DX: F10.229 Alcohol dependence with intoxication, unspecified (principal); E87.2 Acidosis; K22.10 Ulcer of esophagus without bleeding; E78.5 Hyperlipidemia, unspecified; E03.9 Hypothyroidism, unspecified; D75.89 Other specified diseases of blood and blood-forming organs; W18.30XA Fall on same level, unspecified, initial encounter; F43.10 Post-traumatic stress disorder, unspecified; I12.9 Hypertensive chronic kidney disease with stage 1 through stage 4 chronic kidney disease, or unspecified chronic kidney disease; N18.3 Chronic kidney disease, stage 3 (moderate); K21.0 Gastro-esophageal reflux disease with esophagitis; K44.9 Diaphragmatic hernia without obstruction or gangrene; K76.0 Fatty (change of) liver, not elsewhere classified; M19.90 Unspecified osteoarthritis, unspecified site; M50.30 Other cervical disc degeneration, unspecified cervical region; D64.9 Anemia, unspecified; K59.00 Constipation, unspecified; F41.9 Anxiety disorder, unspecified; G89.29 Other chronic pain; M51.36 Other intervertebral disc degeneration, lumbar region; R13.10 Dysphagia, unspecified; Z66 Do not resuscitate; Z96.651 Presence of right artificial knee joint; Z90.49 Acquired absence of other specified parts of digestive tract; Y93.89 Activity, other specified; Y92.89 Other specified places as the place of occurrence of the external cause; Y99.8 Other external cause status; Z87.891 Personal history of nicotine dependence; Z79.899 Other long term (current) drug therapy; Y90.9 Presence of alcohol in blood, level not specified; Z71.41 Alcohol abuse counseling and surveillance of alcoholic; K22.2 Esophageal obstruction
CPT/HCPCS: 36415; 36600; 70450; 71010; 72072; 72125; 74177; 74220; 80048; 80053; 80307; 80329; 81003; 82140; 82550; 82803; 83605; 83735; 84100; 84425; 84443; 84484; 85025; 85610; 85730; 87040; 87324; 88305; 90732; 93005; 96360; 96361; J1644; J2250; J2405; J2550; J2704; J3010; J3480; J7070; Q9967; C9113; G0480; J2060; J7030; J7040

== ENCOUNTER 2017-03-14 12:40 | Emergency (ER) | payer MEDICARE ==
[~2017-03-14] VITALS: Ht 165.1 cm; Wt 74.0 kg
[~2017-03-14 12:40] MED LIST changes: +CITA20TA9 PO; +FENO145T32 PO; +FOLI-17 PO; +GABA-826 PO; -GABA100C8 PO; +LEVO112T4 PO; +METO25TA35 PO; +MULT1TAB60 PO; +OMEP-110 PO; +SUCR1ORA2 PO; +THIA100T6 PO
[2017-03-14] MEDS ORDERED: FAMOTIDINE 20 MG/2 ML ONE (13:25)
[2017-03-14] MEDS ORDERED: METOCLOPRAMIDE 5 MG/ML, 2ML ONE (13:25)
[2017-03-14] MEDS ORDERED: SODIUM CHLORIDE FLUSH 10ML SYR IVF ONE (13:30)
[2017-03-14] MEDS ORDERED: SODIUM CHLORIDE 0.9% 1,000ML IVBOLUS ONE (13:30)
[2017-03-14] MEDS ORDERED: METOCLOPRAMIDE 5 MG/ML, 2ML IVPush ONE (13:30)
[2017-03-14] MEDS ORDERED: FAMOTIDINE 20 MG/2 ML IVP ONE (13:30)
[2017-03-14 13:50] LABS: BLOOD UREA NITROGEN 10 mg/dL (7-18)
[2017-03-14 13:57] LABS: ASPARTATE AMINO TRANSFERASE 17 U/L (15-37); IS PT STATUS REG ER OR PRE ER? YES
[2017-03-14 17:03] VITALS: BP 156/84
== END 2017-03-14 17:14 | disposition home or self-care (01) ==
LOC: ED 17:08
DX: N30.00 Acute cystitis without hematuria (principal); R10.13 Epigastric pain; I10 Essential (primary) hypertension; M19.90 Unspecified osteoarthritis, unspecified site
CPT/HCPCS: 36415; 76700; 80053; 81001; 83690; 84484; 85025; 87077; 87086; 87186; 96374; 96375; 99285; J2765; J7030; S0028

== ENCOUNTER 2017-08-25 09:56 | Emergency (ER) | payer MEDICARE ==
[~2017-08-25] VITALS: Ht 165.1 cm; Wt 76.4 kg
[~2017-08-25 09:56] MED LIST changes: +EZET10TA18 PO; -EZET10TA3 PO; -MELO-184 PO; +MELO15TA24 PO; +POTA20PA25 PO; -POTA20PA8 PO; -SUCR1ORA2 PO; +SUCR1ORA5 PO
[2017-08-25 09:59] VITALS: BP 153/89
[2017-08-25] MEDS ORDERED: AMIT10TA PO (10:30)
[2017-08-25] MEDS ORDERED: OXYB5TAB7 PO (10:30)
[2017-08-25] MEDS ORDERED: DICY10CA3 PO (10:30)
[2017-08-25] MEDS ORDERED: METO5TAB57 PO (10:30)
[2017-08-25] MEDS ORDERED: ONDA4TAB10 PO (10:30)
[2017-08-25] MEDS ORDERED: ZOLP-413 PO (10:30)
[2017-08-25] MEDS ORDERED: OMEP20TA62 PO (10:30)
[2017-08-25] MEDS ORDERED: PROM12.554 PR (10:30)
[2017-08-25] MEDS ORDERED: ALPR0.25 PO (10:30)
[2017-08-25 10:48] LABS: HEMATOCRIT 34.7 % (34.6-47.8); HEMOGLOBIN 11.3 g/dL (11.7-16.4); WHITE BLOOD COUNT 23.2 x10^3/uL (3.4-10)
[2017-08-25 10:55] LABS: BLOOD UREA NITROGEN 18 mg/dL (7-18)
[2017-08-25 11:05] LABS: DIFF TOTAL CELLS COUNTED 100 CELL DIFF
[2017-08-25 11:08] LABS: VERIFY COUNTS? YES
[2017-08-25 11:09] LABS: ANISOCYTOSIS 1+
== END 2017-08-25 12:49 | disposition home or self-care (01) ==
LOC: ED 12:04
DX: M25.561 Pain in right knee (principal); M25.562 Pain in left knee; I10 Essential (primary) hypertension; F43.10 Post-traumatic stress disorder, unspecified
CPT/HCPCS: 36415; 80048; 82040; 85025; 99285